=== PATIENT | male | born 1960 ===

== ENCOUNTER 2018-01-23 07:07 | Day surgery (SDC) | payer MEDICARE ==
[2018-01-23 07:27] VITALS: BMI 31.3
[2018-01-23] MEDS ORDERED: Lactated Ringer's 500 ML IV ONE (07:32)
[2018-01-23 07:43] VITALS: RESP 14
[2018-01-23] MEDS ORDERED: Propofol 10 mg/ml Inj (20 ML) ONE (08:57)
[2018-01-23 09:58] VITALS: BP 104/63; PULSE 87; TEMP 96.8; O2SAT 97
== END 2018-01-23 12:34 | disposition home or self-care (01) ==
LOC: H.ENDO 07:07
PROVIDERS: ATTEND Internal Medicine Gastroenterology
DX: Z86.010 Personal history of colon polyps (principal); K64.8 Other hemorrhoids; K57.30 Diverticulosis of large intestine without perforation or abscess without bleeding; E11.9 Type 2 diabetes mellitus without complications; E78.5 Hyperlipidemia, unspecified; I10 Essential (primary) hypertension; K29.50 Unspecified chronic gastritis without bleeding; K30 Functional dyspepsia; K21.0 Gastro-esophageal reflux disease with esophagitis; K31.89 Other diseases of stomach and duodenum
CPT/HCPCS: 43239; 45378; 82948; 88305; J2001; J2704; J7120